=== PATIENT | male | born 1930 | race American Indian/Alaskan Native ===

== ENCOUNTER 2016-10-13 09:36 | Day surgery (SDC) | payer MEDICARE ==
[2016-02-19 08:30] VITALS: BMI 20.5
[2016-10-13] MEDS ORDERED: Propofol 10 mg/ml Inj (20 ML) ONE (10:28)
[2016-10-13 10:30] LABS: INR 1.2
[2016-10-13] MEDS ORDERED: Etomidate 20 mg/10ml Inj IV ONE (10:30)
[2016-10-13] MEDS ORDERED: ceFAZolin IV 1 gm in Dextrose 50 ML IVPB ONE (10:31)
[2016-10-13] MEDS ORDERED: Rocuronium 10 mg/ml (5 ml) ONE (10:32)
[2016-10-13] MEDS ORDERED: ePHEDrine 50 mg/ml Inj ONE (10:32)
[2016-10-13] MEDS ORDERED: Phenylephrine 10 mg/ml Inj ONE (10:32)
[2016-10-13] MEDS ORDERED: Bupivacaine-Epi 0.5%-1:200,000 PF Inj ONE (10:40)
[2016-10-13] MEDS ORDERED: HYDROmorphone 0.5 mg/0.5 ml ISec IVP PRN ×2 (11:14→12:41)
[2016-10-13] MEDS ORDERED: Neostigmine Methylsulfate 3mg/3ml Syringe IV ONE (11:33)
--- NOTE | 2016-10-13 12:00 | PCM.SURG1 ---
Surgeon's Initial Post Op Note - Surgeon's Notes Surgeon: Dr. Coppola [employer] Billing Analyst: Dr. Wolf PGy2 Type of Anesthesia: General Endo Anesthesia Administered By: Thomas Pre-Operative Diagnosis: Right Inguinal Hernia Operative Findings: same Post-Operative Diagnosis: same Operation Performed: Right Inguinal Hernia Repair, with PHS Mesh Specimen/Specimens Removed: PHS mesh inserted Estimated Blood Loss: EBL {In ML}: 10 Blood Products Given: N/A Drains Used: No Drains Post-Op Condition: Good Date of Surgery/Procedure: 10/13/16 Time of Surgery/Procedure: 12:00
[2016-10-13] MEDS ORDERED: Oxycodone/Acetaminophen 5/325 mg Tab PO ONE (12:30)
[2016-10-13 12:57] VITALS: RESP 18
--- NOTE | 2016-10-13 13:23 | OP ---
PROCEDURE DATE: 10/13/2016 PREOPERATIVE DIAGNOSIS: Right inguinal hernia. POSTOPERATIVE DIAGNOSIS: Right inguinal hernia. PROCEDURE CARRIED OUT: Repair of right inguinal hernia with PHS (Prolene Hernia System). SURGEON: Rivera Coppola Jr., MD DRIFTMAN: ____, resident. ANESTHESIOLOGIST: Ms. Luke, general anesthesia. INDICATIONS: An elderly man, pacemaker, increasingly symptomatic right inguinal hernia. OPERATIVE FINDINGS: 1. This was an indirect inguinal hernia. 2. The cord and its contents were preserved. 3. A PHS (Prolene Hernia System) was used. PROCEDURE: The patient was given general anesthesia and intravenous antibiotics. Venodyne boots wer e applied. Skin prep was carried out with placement of Vi-Drape after the scrubbing the skin. An in cision was made there, exposing the external oblique. The cord and its contents were identified. Th e sac was identified. The sac was inverted back into the peritoneal cavity and the PHS Prolene Herni a System, medium size, was then deployed at this level, sutured and tacked to the surrounding tissues . The external oblique was closed. Marcaine was injected. Blood loss of procedure was 5 mL. OPERATION CARRIED OUT: Repair of right inguinal hernia with PHS (Prolene Hernia System). Rivera Coppola Jr., MD cc:Isatu Duvall MD 58 TT: 10/13/2016 13:23:28 wi
[2016-10-13 14:04] VITALS: BP 1801/90; PULSE 72; TEMP 98.2; O2SAT 99
== END 2016-10-13 14:10 | disposition home or self-care (01) ==
LOC: C.SDS 09:36
PROVIDERS: ATTEND Surgery Vascular Surgery
DX: K40.90 Unilateral inguinal hernia, without obstruction or gangrene, not specified as recurrent (principal); Z95.0 Presence of cardiac pacemaker; Z79.01 Long term (current) use of anticoagulants; I25.10 Atherosclerotic heart disease of native coronary artery without angina pectoris; I10 Essential (primary) hypertension; E11.9 Type 2 diabetes mellitus without complications
CPT/HCPCS: 36415; 49505; 82948; 85610; 85730; J0690; J2001; J2370; J2405; J2704; J2710; J3010